=== PATIENT | female | born 1995 | race African-American/Black ===

== ENCOUNTER 2016-09-21 00:35 | Emergency (ER) | payer OTHER ==
[~2016-09-21] VITALS: Ht 157.5 cm; Wt 61.2 kg
[~2016-09-21 00:35] MED LIST: FLAGYL PO; ZOVIRAX800 MG PO
[2016-09-21] MEDS ORDERED: NO MEDICATIONS (00:46)
== END 2016-09-21 01:36 | disposition home or self-care (01) ==
LOC: SED 00:35
DX: L02.411 Cutaneous abscess of right axilla (principal); F32.9 Major depressive disorder, single episode, unspecified; F17.200 Nicotine dependence, unspecified, uncomplicated
CPT/HCPCS: 10060; 99282

== ENCOUNTER 2016-10-01 23:50 | Emergency (ER) | payer OTHER ==
[~2016-10-01 23:50] MED LIST changes: +NO MEDICATIONS
== END 2016-10-02 01:38 | disposition home or self-care (01) ==
LOC: CED 23:50
DX: Z48.817 Encounter for surgical aftercare following surgery on the skin and subcutaneous tissue (principal); L02.411 Cutaneous abscess of right axilla; F32.9 Major depressive disorder, single episode, unspecified; F17.210 Nicotine dependence, cigarettes, uncomplicated
CPT/HCPCS: 99283